=== PATIENT | female | born 1970 | race Caucasian/White ===

== ENCOUNTER → 2020-09-09 | Outpatient (CLI) | payer OTHER | LOC: CT 15:00 | DX: I73.9 Peripheral vascular disease, unspecified (principal); I77.1 Stricture of artery; I74.5 Embolism and thrombosis of iliac artery | CPT/HCPCS: 36415; 75635; 82565; Q9967 ==

== ENCOUNTER → 2021-06-16 | Outpatient (CLI) | payer BC | LOC: CT 11:53 | DX: I70.212 Atherosclerosis of native arteries of extremities with intermittent claudication, left leg (principal) | CPT/HCPCS: 36415; 75635; 82565; Q9967 ==